=== PATIENT | male | born 1985 | race Caucasian/White ===

== ENCOUNTER 2018-12-24 01:14 | Emergency (ER) | payer SELFPAY ==
[2018-12-24] MEDS ORDERED: Ketorolac 60 MG/2 ML SDV IM ONE (01:20)
--- NOTE | 2018-12-24 01:22 | EDM.PDOC ---
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 Past medical history: As per history of present illness and as reviewed below otherwise noncontributory. Surgical history: As per history of present illness and as reviewed below otherwise noncontributory. Social history: No reported history of drug or alcohol abuse. Family history: As per history of present illness and as reviewed below otherwise noncontributory. Physical exam: HEENT: Atraumatic, normocephalic, pupils reactive, negative for conjunctival pallor or scleral icterus, mucous membranes moist, throat clear, neck supple, nontender, trachea midline. Lungs: Clear to auscultation, breath sounds equal bilaterally, chest nontender. Heart: S1S2, regular, negative for clicks, rubs, or JVD. Abdomen: Soft, nondistended, nontender. Negative for masses or hepatosplenomegaly. Negative for costovertebral tenderness. Pelvis: Stable nontender. Genitourinary: Deferred. Rectal: Deferred. Extremities: Right shoulder has full range of motion mild tenderness is nonlocalized no gross deformity CMS in neurovascular exam is unremarkable Neuro: Awake, alert, oriented. Cranial nerves II through XII unremarkable. Cerebellum unremarkable. Motor and sensory unremarkable throughout. Exam nonfocal. Diagnostics: X-ray right shoulder Therapeutics: Sling right shoulder Toradol 60 mg IM Impression: #1 acute right shoulder Definitive disposition and diagnosis as appropriate pending reevaluation and review of above. - Related Data Allergies Allergy/AdvReac Type Severity Reaction Status Date / Time No Known Allergies Allergy Verified 12/24/18 01:16 Home Meds: Home Meds . [No Known Home Meds] 12/24/18 [History] Review of Systems - Review of Systems Review Of Systems: ROS reveals no pertinent complaints other than HPI. ED EXAM, GENERAL - Physical Exam Exam: See Below (See dictation) Course - Orders/Labs/Meds Orders: Active Orders 24 hr Category Date Time Status Shoulder Comp Rt [CR] Stat Exams 12/24/18 01:17 Ordered Departure - Departure Time of Disposition: :20 Disposition: Home, Self-Care 01 Condition: Good Clinical Impression: Shoulder injury - Discharge Information Additional Instructions: The following information is given to patients seen in the emergency department who are being discharged to home. This information is to outline your options for follow-up care. We provide all patients seen in our emergency department with a follow-up referral. The need for follow-up, as well as the timing and circumstances, are variable depending upon the specifics of your emergency department visit. If you don't have a primary care physician on staff, we will provide you with a referral. We always advise you to contact your personal physician following an emergency department visit to inform them of the circumstance of the visit and for follow-up with them and/or the need for any referrals to a consulting specialist. The emergency department will also refer you to a specialist when appropriate. This referral assures that you have the opportunity for followup care with a specialist. All of these measure are taken in an effort to provide you with optimal care, which includes your followup. Under all circumstances we always encourage you to contact your private physician who remains a resource for coordinating your care. When calling for followup care, please make the office aware that this follow-up is from your recent emergency room visit. If for any reason you are refused follow-up, please contact the [facility] emergency department at and asked to speak to the emergency department charge nurse. [facility] [address], [address] [place] [address] Ultram as prescribed follow-up orthopedic clinic sling as directed return as needed as discussed call to schedule appointment above - My Orders Last 24 Hours: My Active Orders 12/24/18 01:17 Shoulder Comp Rt [CR] Stat - Assessment/Plan Last 24 Hours: My Active Orders 12/24/18 01:17 Shoulder Comp Rt [CR] Stat
--- NOTE | 2018-12-24 13:00 | CR ---
EXAM DATE: 12/24/18 PATIENT'S AGE: 33 Patient: MARYANNE JOSE Facility: [place], [place] Site . Site : 1985 Study: XRay Shoulder Right [id number] 1:51:49 AM Ordering Physician: Doctor Grullon Final Report: Indication: Shoulder pain Technique: Right shoulder 3 views. Comparison: None Findings: Bones: Alignment is normal. No fractures or bone lesions. Joint spaces: Unremarkable. Soft tissues: Unremarkable. Impression: No sign of acute injury. Dictated by Marvin Calvert MD @ Dec 24 2018 1:52AM (Electronic Signature) Report Signed by Proxy. GREG
== END 2018-12-24 02:20 | disposition home or self-care (01) ==
LOC: MW.ED 01:14
DX: S49.91XA Unspecified injury of right shoulder and upper arm, initial encounter (principal); X58.XXXA Exposure to other specified factors, initial encounter; Y99.0 Civilian activity done for income or pay
CPT/HCPCS: 73030; 99283; J1885